=== PATIENT | male | born 2000 | race African-American/Black ===

== ENCOUNTER → 2025-06-27 11:17 | Outpatient (CLI) | payer OTHER, SELFPAY ==
--- NOTE | 2025-06-27 11:22 | DI.MRI.S_ITS ---
PROCEDURE: MR LUMBAR SPINE WO CON INDICATIONS: Intervertebral disc disorders with radiculopathy TECHNIQUE: Noncontrast sagittal T1 spin echo and T2 fast echo, sagittal STIR, and T2 fast spin echo through the lumbar spine. In cases with scoliosis, additional coronal T2 fast spin echo may be performed. COMPARISON: None. FINDINGS: Image quality: Excellent. Alignment and Curvature: There is normal bony alignment. Bone Marrow: Marrow is of normal overall signal. No acute vertebral body compression fractures. Spinal Cord: Conus medullaris terminates at the L1 level. Visualized cord demonstrates normal signal and size. Paraspinous Soft Tissues: No paravertebral masses. T12-L1: Normal appearance. L1-L2: Normal appearance. L2-L3: Normal appearance. L3-L4: Normal appearance. L4-L5: Normal appearance. L5-S1: Abnormal appearance with degenerative disc disease, disc desiccation, disc height loss and broad-based left central, left lateral recess disc protrusion indents the left side of the thecal sac, likely abuts the traversing left S1 nerve root. Possible prior left laminotomy at this level. IMPRESSION: Degenerative disc disease with disc protrusion L5-S1. Dictated by: Sanchez Avila M.D. on 06/27/2025 at 12:46 Approved by: Sanchez Avila M.D. on 06/27/2025 at 13:56
== END ==
LOC: MRI 11:22
PROVIDERS: Referring Provider Physician Assistant; Visit Provider Physician Assistant
DX: M51.17 Intervertebral disc disorders with radiculopathy, lumbosacral region (principal)
CPT/HCPCS: 72148